=== PATIENT | male | born 1955 | race Caucasian/White ===

== ENCOUNTER 2018-08-08 14:26 | Emergency (ER) | payer MEDICARE ==
[~2018-08-08] VITALS: Ht 180.3 cm; Wt 110.2 kg
[~2018-08-08 14:26] MED LIST: AMIT50TA PO; AMLO10TA8 PO; AMOX1TAB61 PO; CLON1TAB11 PO; FERR325T72 PO; HUM100VI5 SQ; INSU100V12 SQ; LEVO500T59 PO; LISI-334 PO; OXYC5TAB88 PO; PANT40TA3 PO; POTA20TA4 PO; PREG50CA PO; SIMV20TA3 PO; VENTOLIN HFA18 GM INH
--- NOTE | 2018-08-08 15:23 | RAD ---
EXAM: Head CT without contrast. HISTORY: Blunt trauma. TECHNIQUE: Computed tomographic images of the head were obtained without contrast. *One or more of the following individualized dose reduction techniques were utilized for this examination: 1. Automated exposure control. 2. Adjustment of the mA and/or kV according to patient size. 3. Use of iterative reconstruction technique. COMPARISON: 10/27/2015. FINDINGS: There is increased scalp soft tissue density at the vertex to the left of midline, possibly due to scarring or a small contusion. There is increased density within the right frontal extra-axial space on a single image due to a prominent cortical vessel. No convincing acute or subacute intracranial hemorrhage is seen. There are chronic lacunar infarcts within the right basal ganglia and thalamus. There is also encephalomalacia likely due to chronic infarction within the right cerebellum. There are subtle areas of hypodensity within the cerebral white matter, likely due to chronic small vessel disease. There is near complete opacification of the left maxillary sinus with slight sinus wall thickening due to chronic sinusitis. The orbits and mastoid air cells are unremarkable. No calvarial lesion is seen. The posterior calvarium is partially excluded from the [id number]. IMPRESSION: 1. No acute intracranial finding. 2. Chronic lacunar infarcts within the right basal ganglia and thalamus and chronic infarct involving the right cerebellum. 3. Subtle areas of hypodensity within the cerebral white matter, likely due to chronic small vessel disease. 4. Left maxillary sinusitis. 5. Small contusion or scarring within the scalp near the vertex to the left of midline. Correlate with the location of recent blunt trauma. Electronically signed by: Ayala Caicedo MD (08/08/2018 3:20 PM) [id number]
[2018-08-08 16:15] VITALS: BP 150/83
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
== END 2018-08-08 16:59 | disposition home or self-care (01) ==
LOC: EEVIPCON 14:26 → ER 14:26
DX: S09.8XXA Other specified injuries of head, initial encounter (principal); E11.9 Type 2 diabetes mellitus without complications; E78.00 Pure hypercholesterolemia, unspecified; I10 Essential (primary) hypertension; Z86.73 Personal history of transient ischemic attack (TIA), and cerebral infarction without residual deficits; Z88.8 Allergy status to other drugs, medicaments and biological substances; Y04.2XXA Assault by strike against or bumped into by another person, initial encounter; Y93.89 Activity, other specified; Y92.89 Other specified places as the place of occurrence of the external cause; Y99.8 Other external cause status
CPT/HCPCS: 70450; 99284-25

== ENCOUNTER 2019-03-27 08:15 | Emergency (ER) | payer MEDICARE ==
[~2019-03-27] VITALS: Ht 180.3 cm; Wt 104.3 kg
[~2019-03-27 08:15] MED LIST changes: -CLON1TAB11 PO; +CLONAZEPAM1 MG PO; -PANT40TA3 PO; +PANT40TA77 PO
[2019-03-27] MEDS ORDERED: fentaNYL PF VIAL 100 MCG/2 ML VIAL IVP ONE (08:45)
[2019-03-27 09:08] LABS: BASO # 0.1 x10^3/uL (0.0-0.2); BASO % 1 % (0-3); CALCIUM 8.9 mg/dL (8.5-10.1); EOS # 0.1 x10^3/uL (0.0-0.7); EOS % 1 % (0-3); HEMOGLOBIN 15.2 g/dL (13.0-17.5); LYMPH # 1.5 x10^3/uL (1.0-4.8); LYMPH % 18 % (24-48); MEAN CORPUSCULAR HEMOGLOBIN 31 pg (25-35); MEAN CORPUSCULAR HGB CONC 36 g/dL (31-37); MEAN CORPUSCULAR VOLUME 87 fL (79-100); MONO # 0.6 x10^3/uL (0.0-1.1); MONO % 7 % (0-9); NEUT # 6.3 x10^3/uL (1.8-7.7); NEUT % 74 % (31-73); PLATELET COUNT 110 x10^3/uL (140-400); POTASSIUM 3.4 mmol/L (3.5-5.1); RED BLOOD COUNT 4.87 x10^6/uL (4.30-5.70); RED CELL DISTRIBUTION WIDTH 15.2 % (11.5-14.5); WHITE BLOOD COUNT 8.6 x10^3/uL (4.0-11.0)
[2019-03-27 09:11] LABS: HEMATOCRIT 42.6 % (39.0-53.0)
[2019-03-27 09:14] LABS: ALBUMIN 3.9 g/dL (3.4-5.0); TOTAL BILIRUBIN 1.1 mg/dL (0.2-1.0); TOTAL PROTEIN 7.9 g/dL (6.4-8.2)
[2019-03-27 09:25] VITALS: BP 156/76
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
[2019-03-27] MEDS ORDERED: Percogesic PO (10:14)
[2019-03-27 10:17] LABS: BILIRUBIN,URINE NEGATIVE (NEG); CLARITY,URINE CLEAR; COLOR,URINE YELLOW; NITRITE,URINE NEGATIVE (NEG); PROTEIN,URINE 30 mg/dL (NEG-TRACE)
[2019-03-27 10:32] LABS: BACTERIA,URINE FEW /HPF (0-FEW); WBC,URINE OCC /HPF (0-4)
--- NOTE | 2019-03-27 11:40 | RAD ---
FOOT BILAT 3V History: Neuropathy. Pain. Technique: 3 views bilateral feet Comparison: None. Findings: Right foot: Normal alignment. No fracture. Mild midfoot degenerative changes. Vascular calcination location. Mild ankle DJD. Left foot: Normal alignment. No fracture. Soft tissues unremarkable. Small plantar calcaneal spur. Small dorsal calcaneal views of right. Vascular calcifications. Impression: 1. No acute osseous abnormality. 2. Right mid foot and ankle DJD. Electronically signed by: Ministerio Shaw DO (03/27/2019 11:37 AM) [facility]
== END 2019-03-27 10:18 | disposition home or self-care (01) ==
LOC: ER 08:15
DX: E11.40 Type 2 diabetes mellitus with diabetic neuropathy, unspecified (principal); E78.00 Pure hypercholesterolemia, unspecified; I10 Essential (primary) hypertension; G89.29 Other chronic pain; Z88.8 Allergy status to other drugs, medicaments and biological substances
CPT/HCPCS: 36415; 73630; 80053; 81001; 82550; 83880; 85025; 96374; 99285; J3010

== ENCOUNTER 2021-07-15 14:32 | Emergency (ER) | payer MEDICARE ==
[~2021-07-15] VITALS: Ht 177.8 cm; Wt 103.1 kg
[~2021-07-15 14:32] MED LIST changes: +AMLO-187 PO; -AMLO10TA8 PO; -LISI-334 PO; +LISI20TA18 PO; +POTA-121 PO; -POTA20TA4 PO; -PREG50CA PO; +PREG50CA91 PO; +Percogesic PO; +SIMV20TA18 PO; -SIMV20TA3 PO
[2021-07-15 14:51] VITALS: BP 177/87
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
== END 2021-07-15 15:25 | disposition home or self-care (01) ==
LOC: ER 14:32
DX: G89.29 Other chronic pain (principal); M79.10 Myalgia, unspecified site; Z76.5 Malingerer [conscious simulation]; E11.40 Type 2 diabetes mellitus with diabetic neuropathy, unspecified; E78.00 Pure hypercholesterolemia, unspecified; I10 Essential (primary) hypertension; Z86.73 Personal history of transient ischemic attack (TIA), and cerebral infarction without residual deficits; Z88.8 Allergy status to other drugs, medicaments and biological substances
CPT/HCPCS: 99282